=== PATIENT | male | born 1960 | race Caucasian/White ===

== ENCOUNTER 2018-09-23 12:29 | Inpatient (IN) | payer OTHER ==
[~2018-09-23] VITALS: Ht 175.3 cm; Wt 98.9 kg
[2018-09-23 12:31] VITALS: Ht 175.3 cm; Wt 98.9 kg
--- NOTE | 2018-09-23 12:41 | NUR ---
EKG DONE AT BEDSIDE//APR RN
--- NOTE | 2018-09-23 12:47 | NUR ---
RECEIVED PATIENT FROM [facility], [facility], PER REPORT PATTIE C/O SOB AND CHEST PAIN RADIATING TO LEFT LATERAL CHEST WALL WHILE AT THE YARD EARLIER TODAY. PER PATIENT, SOB AND CHEST PAIN 7/10 PAIN SCALE, COUGH FOR FEW DAYS WITH YELLOW PHLEGM. PATIENT IS AAO X 4 (NAME, DATE, CONDITION AND LOCATION). EYES - JOZEF. MUCUS - PINK. DRY COUGH NOTED. SR ON MONITOR, HR = 92. LUNGS - EXP WHEEZING THROUGHOUT. BS PRESENT X 4 QUADRANTS. B/L UPPER AND LOWER EXT PULSES PALPABLE. HEPLOCK INITIATED IN THE FIELD ON LEFT HAND 20 GAUGE. 2 [employer] OFFICERES AT BEDSIDE, PATIENT WITH HANDCUFFS B/L UPPER AND LOWER EXT. PATIENT PUT ON MONITOR AND 02 2L VIA NC. WILL CONTINUE TO MONITOR//APR RN
[2018-09-23 13:18] LABS: BASOPHIL % 0.7 % (0-2); PLATELET COUNT 143 x10^3mcL (130-400); RED CELL DISTRIBUTION WIDTH 14.3 % (11.5-14.5)
[2018-09-23 13:30] LABS: CALCIUM 9.1 mg/dL (8.5-10.1); CARBON DIOXIDE 27.5 mmol/L (21-32); CREATININE SERUM 1.5 mg/dL (0.7-1.3); POTASSIUM SERUM 3.4 mmol/L (3.5-5.1)
[2018-09-23 13:34] LABS: ALBUMIN 3.7 g/dL (3.4-5.0); BILIRUBIN TOTAL 1.3 mg/dL (0.20-1.00); TOTAL PROTEIN, SERUM 6.8 g/dL (6.4-8.2)
--- NOTE | 2018-09-23 14:03 | NUR ---
PATIENT DENIES ANY PAIN AT THIS TIME, STATES "MUCH BETTER."//APR RN
[2018-09-23 15:08] LABS: MAGNESIUM 1.8 mg/dL (1.8-2.4)
[2018-09-23 15:12] LABS: CHOLESTEROL/HDL RATIO 2.4
--- NOTE | 2018-09-23 15:19 | NUR ---
REPORT GIVEN TO ANDREW GUERRERO FOR ROOM 225B. PATIENT AND PD MADE AWARE OF TRANSFER/ADMISSION TO ROOM 225B.//APR RN
[2018-09-23] MEDS ORDERED: AMOXICILLIN875 MG PO (15:24)
[2018-09-23] MEDS ORDERED: AMLODIPINE BES2.5 M1 PO (15:25)
[2018-09-23] MEDS ORDERED: CEPL PO (15:25)
[2018-09-23] MEDS ORDERED: QUALITY CHOICE650 M1 PO (15:26)
[2018-09-23] MEDS ORDERED: GOOD SENSE ASPI81 M3 PO (15:27)
[2018-09-23] MEDS ORDERED: PANTOPRAZOLE SO40 M1 PO (15:27)
[2018-09-23] MEDS ORDERED: DULERA1 AR2 INH (15:28)
[2018-09-23] MEDS ORDERED: TAMSULOSIN HYD0.4 M1 PO (15:28)
[2018-09-23] MEDS ORDERED: MONTELUKAST SOD10 M1 PO (15:29)
[2018-09-23] MEDS ORDERED: XOPENEX PE0.31 MG/3 INH (15:29)
[2018-09-23] MEDS ORDERED: ASSORTED FRUIT G4 GM PO (15:30)
--- NOTE | 2018-09-23 15:40 | NUR ---
[facility] ACCOM[facility]ANIED BY RN, TRANSPORTER, AND 2 [employer] GUARDS. PT A/A/O X 4, CALM, COOPERATIVE; C/O CONSTANT POUNDING H/A 8/10. PT AMBULATORY, IN SHACKLES, ABLE TO WALK FROM [facility] TO BED WITH SLOW, STEADY GAIT. ON TELE # 18, SR W/ DEPRESSED ST SEGMENT AND 1ST DEGREE AVB, C/O INTERMITTENT BURNING PAIN TO MID CHEST RADIATING TO LEFT LATERAL CHEST 10, EXACERBATED BY INSPIRATION AND COUGHING. LUNGS DIMINISHED BILATERALLY, CHEST RISING EVENLY, 2LNC, 96%, C/O PRODUCTIVE COUGH W/ MODERATE AMOUNT OF YELLOW PHLEGM. IV SITE TO 20G, CDI. ORIENTED PT TO ROOM, BED CONTROLS, CALL LIGHT SYSTEM. SIDE RAILS UP X 2, BED IN LOW POSITION. WILL ENDORSE TO ANDREW MORIN.
--- NOTE | 2018-09-23 15:45 | NUR ---
PT IS SITTING UP IN THE BED. ERICA AT BEDSIDE. PT IS STABLE. V/S STABLE.
[2018-09-23 16:18] VITALS: BP 128/86
--- NOTE | 2018-09-23 16:45 | NUR ---
INFORMED ABOUT PT RHYTHM FIRST DEGREE AV BLOCK WITH DEPRESSED ST WAVE. NO NEW ORDER RECEIVED THIS TIME. INFORMED HIM K=3.4 AND RECEIVED ORDER FOR KCL PO 40 MEQ, WILL GIVE ESME. DENIES CHEST PAIN. PT IS STABLE.
--- NOTE | 2018-09-23 17:30 | NUR ---
BRIAN BARON AND INFORMED HIM ABOUT PT HAVING FREQUENT PAUSES. ONE PAUSE WAS 1.4SEC. DENIES CHEST PAIN. V/S STABLE. ALSO INFORMED HIM ABOUT PT HAS MILD SOB AND REQUESTED FOR RT PROTOTOCOLE AND VERIFY HOME MED. RECIEVED ORDER.
--- NOTE | 2018-09-23 19:20 | NUR ---
PT IS STABLE. NO SOB NOTED. DENIES ANY PAIN. ERICA AT BEDSIDE. GAVE REPORT TO WOOD ROOM HAND NURSE.
[2018-09-23 19:33] VITALS: BP 128/86
--- NOTE | 2018-09-23 19:50 | NUR ---
PT SEEN BY DR. DANIELLE.
--- NOTE | 2018-09-23 20:00 | NUR ---
RECEIVED PT IN BED AWAKE, ALERT,ORIENTED X4. PT WAS SEEN BY DR. DANIELLE. LUNG SOUNDS DIMINISHED. NO SOB AT THIS TIME. ON O2 AT 2L VIA N/C. PT STATED HE HAS MILD CHEST PAIN ON THE LT SIDE AND TOLERABLE AT THIS TIME. NO C/O ABDL DISCOMFORT. W/ IVF 1/2 NS AT 75 CC/HR VIA LT HAND. CALL LIGHT W/IN REACH.
[2018-09-23 20:59] VITALS: BP 129/86
--- NOTE | 2018-09-24 02:00 | NUR ---
PT C/O DIFFICULTY BREATHING. PT COUGHING OCCASIONALLY. HE REQUESTED FOR A BREATHING TX. CALLED RT FOR BREATHING TX.
--- NOTE | 2018-09-24 02:25 | NUR ---
PT VERBALIZED HE IS FEELING BETTER AFTER HE WAS GIVEN BREATHING TX.
[2018-09-24 04:02] LABS: microscopic required? NO
[2018-09-24 04:35] LABS: AMPHETAMINE QUAL UR NONE DETECTED (See below)
[2018-09-24 04:51] LABS: urine erythrocyte NEGATIVE (NEGATIVE)
--- NOTE | 2018-09-24 05:11 | NUR ---
PT SLEPT IN LONG INTERVALS. HE HAS NO C/O CHEST PAIN AT THIS TIME. PT C/O SOB X1 DURING THE NIGHT . HE WAS GIVEN BREATHING TX AND FELT BETTER AFTER. PT FOR STRESS TEST TODAY AT 1330 ORDERED. IVF 1/2 NS INFUSING WELL AT 75 CC/HR . ALL NEEDS ATTENDED TO. 2 OFFICERS REMAIN AT BEDSIDE.
[2018-09-24 05:22] VITALS: BP 122/83
[2018-09-24 06:29] LABS: CALCIUM 8.4 mg/dL (8.5-10.1); CARBON DIOXIDE 28.9 mmol/L (21-32); CREATININE SERUM 1.4 mg/dL (0.7-1.3); POTASSIUM SERUM 3.4 mmol/L (3.5-5.1)
[2018-09-24 06:57] LABS: PLATELET COUNT 125 x10^3mcL (130-400); RED CELL DISTRIBUTION WIDTH 13.9 % (11.5-14.5)
--- NOTE | 2018-09-24 08:00 | NUR ---
SHIFT ASSESSMENT DONE. 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 HR 72. DENIED CHEST PAIN NOW. SLIGHT LABORED BREATHING. WHEEZING SOUND NATASHA. O2 SAST 96% ON 2L VIA N/C. LIGHT BREAKFAST AND HOLD LUNCH FOR CARDIAC STRESS TEST. IVF OF 1/2NS 75CC/HR. IV SITE TO L HAND INTACT. AMBULATORY. CIM GUARD IN ROOM.
[2018-09-24 08:58] VITALS: BP 168/96
--- NOTE | 2018-09-24 09:50 | NUR ---
DR. PACK CAME TO SEE PATIENT. AWARE OF PATIENT'S HEART RHYTHM AND B/P. NEW ORDER WRITTEN.
[2018-09-24 12:16] VITALS: BP 131/78
--- NOTE | 2018-09-24 14:02 | NUR ---
LEXISCAN STRESS TEST DONE
--- NOTE | 2018-09-24 17:23 | NUR ---
REPORTED PATIENT'S STRESS TEST RESULT TO DR. PACK. ALSO REPORTED PATIENT HAD WHEEZING SOUND NATASHA. ORDER OF RESP TREATMENT CONTINUED.
[2018-09-24 17:35] VITALS: BP 145/98
--- NOTE | 2018-09-24 19:20 | NUR ---
RECEIVED PT IN BED AWAKE, ALERT,ORIENTED X4. LUNG SOUNDS W/ EXPIRATORY WHEEZE BILAT. ON O2 AT 2L VIA N/C. PT COUGHING AT TIMES. NO SOB AT THIS TIME. HE HAS NO C/O CHEST PAIN OR PALPITATIONS. W/ IVF 1/2 NS AT 75 CC/HR VIA LT HAND. CALL LIGHT W/IN REACH.
[2018-09-24 20:56] VITALS: BP 123/81
--- NOTE | 2018-09-24 22:15 | NUR ---
PT C/O FEELING ACIDIC IN HIS STOMACK AND ESOPHAGUS AND HE IS ASKING FOR MEDICINE . DR. PACK INFORMED AND GAVE ORDER. PT MEDICATED W/ PROTONIX 40 MG PO ORDERED.
--- NOTE | 2018-09-25 00:30 | NUR ---
PT ASLEEP BUT EASILY AROUSABLE. HE HAS NO C/O PAIN OR DISCOMFORT AT THIS TIME.
[2018-09-25 05:43] VITALS: BP 128/83
--- NOTE | 2018-09-25 06:47 | NUR ---
PT SLEPT AT LONG INTERVALS. HE HAD NO C/O CHEST PAIN. PT STILL COUGHING BUT FEELING BETTER. NO EPISODE OF SOB OR RESP. DISTRESS. IVF 1/2NS INFUSING WELL AT 75 CC/HR. ALL NEEDS ATTENDED TO.
--- NOTE | 2018-09-25 07:20 | NUR ---
RECEIVED PT FROM OPERATING ROOM REGISTERED NURSE RN. Cecelia/DEMI. TELE#18. DENIES CHEST PAIN/PRESSURE AT THIS TIME. RESPIRATIONS EQUAL AND UNLABORED ON 2L NC. DENIES SOB. REMOVED NC PT TOLERATING RA WELL. PT STATES HE JUST FEELS CONGESTED. CIM PT, 2 GUARDS AT BEDSIDE. IV TO LH PATENT AND INFUSING. NO REDNESS OR SWELLING NOTED. SCAB TO RLE, DANTE. WILL CONTINUE TO MONITOR. CALL LIGHT IN REACH. BED IN LOWEST POSITION.
[2018-09-25 08:43] VITALS: BP 151/75
--- NOTE | 2018-09-25 09:27 | NUR ---
PT SITTING UP IN BED. NO ACUTE RESP DISTRESS NOTED ON RA. PT DENIES ANY PAIN AT THIS TIME. PT C/O CONGESTION AND COUGH. DR. PACK AT BEDSIDE. PER DR. PACK PT WILL STAY ONE MORE DAY AND WILL ADD ROBITUSSIN AND IV ANTIBIOTICS. IV PATENT AND INFUSING TO LH. NO REDNESS OR SWELLING NOTED. WILL CONTINUE TO MONITOR. CALL LIGHT IN REACH. BED IN LOWEST POSITION.
[2018-09-25 12:40] VITALS: BP 177/71
[2018-09-25] MEDS ORDERED: HYDROCHLOROTHIA25 MG PO (12:53)
[2018-09-25] MEDS ORDERED: CARVEDILOL6.25 M1 PO (12:55)
[2018-09-25] MEDS ORDERED: LANTUS100 U/ML SQ (12:57)
[2018-09-25] MEDS ORDERED: ATORVASTATIN CA40 M1 PO (12:58)
[2018-09-25] MEDS ORDERED: LANTUS SOLOS100 U/M1 SQ (12:58)
--- NOTE | 2018-09-25 13:03 | NUR ---
CALLED AND SPOKE TO AND MADE HIM AWARE OF PT ELEVATED BP-171/86 AND THAT PT BP MEDS FROM [facility] WERE NOT RESUMED, BLOOD SUGAR WAS BS-190MG/DL AND PT INSULIN FROM HOME MEDICATION WERE NOT RESUME, NEW ORDERS RECEIVED TO RESUME THE BP MEDS AND INSULIN. PLS SEE CPOE. RAYNA MORALES ASSIGNED TO THIS PT MADE AWARE OF ABOVE.
--- NOTE | 2018-09-25 13:46 | NUR ---
PT SITTING UP IN BED. NO ACUTE RESP DISTRESS NOTED ON RA. PT STATES HE HAS WAHL BECAUSE HIS BP IS HIGH. GIVEN PO MEDS. TOLERATED WELL. IV PATENT AND INFUSING TO LH. NO REDNESS OR SWELLING NOTED. IV ANTIBIOTICS INFUSING ORDERED. PT STATES COUGH HAS IMPROVED SINCE RECEIVING ROBITUSSIN. EMPTIED 280 ML OF YELLOW URINE FROM URINAL. WILL CONTINUE TO MONITOR. CALL LIGHT IN REACH. BED IN LOWEST POSITION.
--- NOTE | 2018-09-25 15:23 | NUR ---
PER DR. SHASHI HUERTA FOR DISCHARGE.
[2018-09-25 16:14] LABS: CALCIUM 9.2 mg/dL (8.5-10.1); CARBON DIOXIDE 21.1 mmol/L (21-32); CREATININE SERUM 1.4 mg/dL (0.7-1.3); POTASSIUM SERUM 3.6 mmol/L (3.5-5.1)
--- NOTE | 2018-09-25 16:30 | NUR ---
SPOKE WITH DR. KENDRICK. PER DR. KENDRICK GET SPUTUM CULTURE AND TEACH PT TO USE IS. PT INSTRUCTED PT ON HOW TO USE INCENTIVE SPIROMETER. ENCOURAGED PT TO DO 10 EXCERCISES PER HOUR. PT GIVEN SPECIMEN CUP FOR SPUTUM CULTURE. PT VERBALIZED UNDERSTANDING. WILL CONTINUE TO MONITOR. CALL LIGHT IN REACH. BED IN LOWEST POSITION.
[2018-09-25 17:55] VITALS: BP 141/82
--- NOTE | 2018-09-25 17:59 | NUR ---
PT SITTING UP IN BED. NO ACUTE RESP DISTRESS NOTED ON RA. PT STATES WAHL HAS IMPROVED AND IS TOLERABLE AT THIS TIME. IV ANTIBIOTICS INFUSING ORDERED. NO REDNESS OR SWELLING NOTED. EMPTIED 260 OF CLEAR YELLOW URINE FROM URINAL. WILL CONTINUE TO MONITOR. CALL LIGHT IN REACH. BED IN LOWEST POSITION.
--- NOTE | 2018-09-25 19:35 | NUR ---
REPORT GIVEN TO ASHLEY. ALL QUESTIONS ANSWERED.
--- NOTE | 2018-09-25 19:35 | NUR ---
RECIEVED PT FROM DAY SHIFT RN. PT AAOX4 DENIES HEADACHE OR DIZZINESS. TELE [address], PT DENIES CHEST PAIN OR PRESSURE. BREATHING EVEN AND UNLABORED ON RA, WITH NO SOB NOTED. AMBULATORY WITH BRP. PT DENIES ANY DISTRESS. IV LH PATENT, SL. CALL BUTTON WITHIN REACH. GUARDS AT BEDSIDE. WILL CONTINUE TO MONITOR.
[2018-09-25 21:57] VITALS: BP 145/86
[2018-09-26] VITALS (7 sets, daily range): BP systolic 125–135; BP diastolic 64–79
--- NOTE | 2018-09-26 | NUR ---
PT AWAKE, DENIES PAIN. BREATHING EVEN AND UNLABORED WITH NO SOB NOTED. CALL BUTTON WITHIN REACH. GUARDS AT BEDSIDE. WILL CONTINUE TO MONITOR.
--- NOTE | 2018-09-26 02:00 | NUR ---
PT RESTING, BREATHING EVEN AND UNLABORED WITH NO SOB NOTED. NO SIGNS OF DISTRESS NOTED. CALL BUTTON WITHIN REACH. GUARDS AT BEDSIDE. WILL MONITOR.
[2018-09-26 06:26] LABS: PLATELET COUNT 184 x10^3mcL (130-400)
--- NOTE | 2018-09-26 06:48 | NUR ---
PT SLEPT MOST OF THE NIGHT WITH NO SIGNS OF DISTRESS NOTED. BREATHING EVEN AND UNLABORED WITH NO SIGNS OF DISTRESS. PT CONTINUE TO HAVE COUGH. IV PATENT, SL. MEDICATED PER EMAR. NO SIGNS OF ACUTE DISTRESS NOTED. GUARDS AT BEDSIDE. WILL CONTINUE TO MONITOR AND ENDORSE CARE TO DAY SHIFT RN.
[2018-09-26 06:55] LABS: CALCIUM 9.4 mg/dL (8.5-10.1); CARBON DIOXIDE 23.8 mmol/L (21-32); CREATININE SERUM 1.5 mg/dL (0.7-1.3)
[2018-09-26 07:04] LABS: BASOPHIL % 0 % (0-2); RED CELL DISTRIBUTION WIDTH 14.9 % (11.5-14.5)
--- NOTE | 2018-09-26 07:30 | NUR ---
RECEIVED PT FROM SLEEP TECH RN. Cecelia/DEMI. TELE#18. DENIES CHEST PAIN/PRESSURE AT THIS TIME. RESPIRATIONS EQUAL AND UNLABORED ON RA. DENIES SOB AT THIS TIME. IV SALINE LOCKED TO RH. NO REDNESS OR SWELLING NOTED. PT DENIES ANY PAIN AT THIS TIME. 2 GUARDS AT BEDSIDE WITH PT. WILL CONTINUE TO MONITOR. CALL LIGHT IN REACH. BED IN LOWEST POSITION.
--- NOTE | 2018-09-26 07:36 | NUR ---
PT AWAKE, DENIES PAIN. NO SIGNS OF DISTRESS NOTED. GUARDS AT BEDSIDE. ENDORSED CARE TO DAY SHIFT RN, ALL QUESTIONS ADDRESSED.
--- NOTE | 2018-09-26 08:28 | NUR ---
PT TAKEN OFF FLOOR VIA WHEEL CHAIR FOR CT OF CHEST. ACCOMPANIED BY GUARDS.
--- NOTE | 2018-09-26 08:38 | NUR ---
PT BACK FROM CT CHEST.
--- NOTE | 2018-09-26 08:55 | NUR ---
PT SITTING UP IN BED. PT RECEIVING BREATHING TREATMENT. GIVEN PO MEDS. TOLERATED WELL. BP CHECKED WAS 126/64, HR 74. PT DENIES CHEST PAIN/PRESSURE. PT DENIES ANY SOB AT THIS TIME. IV PATENT AND INFUSING TO RH. IV ANTIBIOTICS INFUSING ORDEDER. WILL CONTINUE TO MONITOR. CALL LIGHT IN REACH. BED IN LOWEST POSITION.
--- NOTE | 2018-09-26 09:52 | NUR ---
Nutrition Note: Patient reported to have PMHx of DM (per diet clerck). Patient is currently on cardiac diet. In bed huddles, fire extinguisher chargerANDREW Linton was informed and recommendation to add CCHO to current diet was made. ANDREW Linton verbalized understanding and said that she will inform Dr. Davis to change the diet order.
--- NOTE | 2018-09-26 13:11 | NUR ---
PT SITTING UP IN BED. NO ACUTE RESP DISTRESS NOTED ON RA. PT DENIES ANY PAIN AT THIS TIME. IV PATENT AND INFUSING TO RH. NO REDNESS OR SWELLING NOTED. IV ANTIBIOTICS INFUSING ORDERED. BLOOD SUGAR CHECKED WAS 141. NO COVERAGE NEEDED. WILL CONTINUE TO MONITOR. CALL LIGHT IN REACH. BED IN LOWEST POSITION.
--- NOTE | 2018-09-26 16:52 | NUR ---
DR. KENDRICK AT BEDSIDE. FROM DR. KENDRICK STANDPOINT PT IS CLEARED FOR DISCHARGE. DR. KENDRICK RECOMMENDS PT BE GIVEN PRESCRIPTION FOR LEVAQUIN PO DAILY, PREDNISONE 20MG ONCE A DAY FOR 5 DAYS AND PREDNISONE 10 MG ONCE A DAY FOR [address] PACK AND UPDATED. NO NEW ORDERS RECEIVED.
--- NOTE | 2018-09-26 17:16 | NUR ---
PT SITTING UP IN BED. NO ACUTE RESP DISTRESS NOTED ON RA. PT INFORMED HE IS CLEARED FOR DISCHARGE. IV ANTIBIOTICS INFUSING ORDERED. NO REDNESS OR SWELLING NOTED. WILL CONTINUE TO MONITOR. CALL LIGHT IN REACH. BED IN LOWEST POSITION.
--- NOTE | 2018-09-26 17:47 | NUR ---
PT SITTING UP IN BED. PT GIVEN DISCHARGE INSTRUCTIONS. PT ENCOURAGED TO TAKE ALL MEDICATIONS PRESCRIBED. PT INFORMED OF NEW PRESCIPTIONS FOR ANTIBIOTICS AND STERIODS TO BE TAKEN ORAL. GUARDS MADE AWARE. GUARDS WILL NOTIFY ONCE TRANSPORT IS AVAILABLE. ONCE TRANSPORT IS AVAILABLE IV AND TELE WILL BE REMOVED. ALL QUESTIONS AND CONCERNS ADDRESSED. WILL CONTINUE TO MONITOR.
--- NOTE | 2018-09-26 19:43 | NUR ---
IV ON THE LEFT HAND REMOVED, CATHETER INTACT, NO ERYTHEMA/SWELLING NOTED. PT WHEELED DOWN BY ROSALINA BRADSHAW, PT DISCHARGED
== END 2018-09-26 19:42 | disposition other institution (70) | DRG 189 ==
LOC: ED 12:29 → DU 14:06
PROVIDERS: Emergency Medicine; Internal Medicine; Internal Medicine Cardiovascular Disease; ADMIT Internal Medicine
DX: J96.90 Respiratory failure, unspecified, unspecified whether with hypoxia or hypercapnia (principal); J44.1 Chronic obstructive pulmonary disease with (acute) exacerbation; I24.9 Acute ischemic heart disease, unspecified; E87.0 Hyperosmolality and hypernatremia; N17.9 Acute kidney failure, unspecified; J45.901 Unspecified asthma with (acute) exacerbation; J44.0 Chronic obstructive pulmonary disease with (acute) lower respiratory infection; I25.10 Atherosclerotic heart disease of native coronary artery without angina pectoris; E78.5 Hyperlipidemia, unspecified; E87.8 Other disorders of electrolyte and fluid balance, not elsewhere classified; E78.00 Pure hypercholesterolemia, unspecified; J20.9 Acute bronchitis, unspecified; I10 Essential (primary) hypertension; I25.2 Old myocardial infarction; Z79.82 Long term (current) use of aspirin; Z68.32 Body mass index [BMI] 32.0-32.9, adult; Z95.5 Presence of coronary angioplasty implant and graft; Z88.5 Allergy status to narcotic agent; Z79.899 Other long term (current) drug therapy
CPT/HCPCS: 82962; 94150; A9500; G0378; J1644; J1815; J1885; J1956; J2543; J2785; J2920; J7626; J7644